=== PATIENT | male | born 1985 | race African-American/Black ===

== ENCOUNTER 2023-06-06 14:15 | Emergency (ER) | payer BC, SELFPAY ==
[2023-06-06] MEDS ORDERED: Diazepam 5 MG TAB ONE (17:16)
[2023-06-06] MEDS ORDERED: Ketorolac Tromethamine 30 MG (1 mL) VIAL ONE (17:16)
[2023-06-06] MEDS ORDERED: predniSONE 20 MG TAB ONE (17:17)
== END 2023-06-06 17:25 | disposition home or self-care (01) ==
LOC: CSHERS 14:15
DX: S39.012A Strain of muscle, fascia and tendon of lower back, initial encounter (principal); F17.210 Nicotine dependence, cigarettes, uncomplicated; X50.0XXA Overexertion from strenuous movement or load, initial encounter
CPT/HCPCS: 96372; 99283; J1885; J7512